=== PATIENT | male | born 1990 | race Caucasian/White ===

== ENCOUNTER 2019-11-15 01:25 | Emergency (ER) | payer OTHER ==
[2019-11-15 01:40] VITALS: BP 146/79
[2019-11-15] MEDS ORDERED: LIDOCAINE 1% 2 ML VIAL SUBQ STA (01:55)
[2019-11-15] MEDS ORDERED: BACITRACIN ZINC OINT 1 PACKET TOP STA (02:16)
--- NOTE | 2019-11-15 02:32 | ED Physician Documentation ---
History of Present Illness - Stated complaint Stated Complaint: R FINGER LAC - Chief complaint Chief Complaint: Laceration - History obtained from History obtained from: Patient - Additonal information Additional information: Patient comes emergency department complaining of a right ring finger tip laceration after trying to cut a piece of vinyl on a cutting board. Patient states the knife slipped and went into his fingertip. Patient denies any other complaints this time. No other injuries. Review of Systems Ten Systems: 10 systems reviewed and negative Constitutional: reports: Reviewed and negative Eyes: reports: Reviewed and negative Ears: reports: Reviewed and negative Nose: reports: Reviewed and negative Throat: reports: Reviewed and negative Cardiac: reports: Reviewed and negative Respiratory: reports: Reviewed and negative GI: reports: Reviewed and negative : reports: Reviewed and negative Skin: reports: Laceration (s) Musculoskeletal: reports: Reviewed and negative Neurologic: reports: Reviewed and negative Psychiatric: reports: Reviewed and negative Endocrine: reports: Reviewed and negative Immunocompromised: reports: Reviewed and negative PD PAST MEDICAL HISTORY - Past Medical History Past Medical History: No - Past Surgical History Past Surgical History: No - Present Medications Home Medications: Ambulatory Orders Medication Instructions Recorded Confirmed No Known Home Medications 11/15/19 11/15/19 - Allergies Allergies/Adverse Reactions: Allergies Allergy/AdvReac Type Severity Reaction Status Date / Time cetirizine [From [facility]] Allergy Hives Verified 11/15/19 01:37 loratadine Allergy Hives Verified 11/15/19 01:37 - Social History Does the pt smoke?: No Smoking Status: Never smoker Does the pt drink ETOH?: No Does the pt have substance abuse?: No - Immunizations Immunizations are current?: Yes - POLST Patient has POLST: No PD ED PE NORMAL - Vitals Vital signs reviewed: Yes - General General: Alert and oriented X 3, No acute distress, Well developed/nourished - HEENT HEENT: Atraumatic, PERRL, EOMI, Moist mucous membranes - Neck Neck: Supple, no meningeal sign - Cardiac Cardiac: Strong equal pulses - Respiratory Respiratory: No respiratory distress - Derm Derm: Normal color, Warm and dry, No rash, Other (Patient has a 1 and half centimeter laceration to the flexor aspect of his right ring fingertip. Nailbed and nail are not involved. Lacerations approximately 3 mm deep) - Extremities Extremities: No deformity - Neuro Neuro: Alert and oriented X 3, No motor deficit, No sensory deficit - Psych Psych: Normal mood, Normal affect Results - Vitals Vitals: Oxygen O2 Source Room air Procedures - Laceration (location) R ring finger Wound type: Linear, Into subcut fat, Clean Neurovascular status: Sensory intact, Motor intact, Vascular intact Tendon involvement: Tendon intact Anesthesia: Lidocaine 1% Wound Preparation: Betadine Skin layer closure: Nylon, Interrupted, Size #-0 - enter number (4.0), Sutures - enter # (4) Other: Patient tolerated well, No complications, Neurovascular intact, Dressing applied, Tetanus UTD Complexity: Intermediate PD MEDICAL DECISION MAKING - ED course Complexity details: considered differential, d/w patient ED course: Wound repaired as above. We have discussed home management of the wound, the need for suture removal by a medical professional in 7 days, and the usual indications for return. Departure - Departure Disposition: 01 Home, Self Care Clinical Impression: Laceration Condition: Stable Instructions: ED Laceration Ext Sutr Stap Tape Comments: Please keep the wound clean and dry. Do not rub, scrub, or immerse the wound until sutures are removed. As we have discussed, this is to prevent infection from developing. You may let water and soap run over the wound, however. Please follow-up in urgent care, walk-in clinic, your primary doctor's office for suture removal in 7 days. If the wound develops redness and swelling spreading away from it, or if it splits open and drains pus, please have it rechecked immediately, as you may have developed infection. Discharge Date/Time: 11/15/19 02:34
== END 2019-11-15 02:34 | disposition home or self-care (01) ==
LOC: ED 01:25
DX: S61.214A Laceration without foreign body of right ring finger without damage to nail, initial encounter (principal); W26.0XXA Contact with knife, initial encounter; Y93.89 Activity, other specified
CPT/HCPCS: 12041; 99281; 99282; A9270